=== PATIENT | female | born 1995 | race Two or more races ===

== ENCOUNTER 2020-05-22 13:50 | Emergency (ER) | payer OTHER ==
[~2020-05-22] VITALS: Ht 170.2 cm; Wt 59.0 kg
[2020-05-22] MEDS ORDERED: ONDANSETRON ODT4 MG SL (22:13)
[2020-05-22] MEDS ORDERED: PEPCID AC20 MG PO (22:13)
[2020-05-23] MEDS ORDERED: [UNRECOGNIZED DRUG - OTHER] (23:44)
== END 2020-05-23 01:45 ==
LOC: ER 13:50
DX: K52.89 Other specified noninfective gastroenteritis and colitis (principal); Z20.828 Contact with and (suspected) exposure to other viral communicable diseases

== ENCOUNTER 2020-05-25 21:44 | Emergency (ER) | payer OTHER ==
[~2020-05-25] VITALS: Ht 170.2 cm; Wt 59.0 kg
[~2020-05-25 21:44] MED LIST: ONDANSETRON ODT4 MG SL; PEPCID AC20 MG PO; [UNRECOGNIZED DRUG - OTHER]
[2020-05-25] MEDS ORDERED: ADERAL PO (22:00)
== END 2020-05-25 23:17 | disposition home or self-care (01) ==
LOC: ER 21:44
DX: R51.9 Headache, unspecified (principal)

== ENCOUNTER 2022-09-11 17:17 | Inpatient (IN) | payer OTHER ==
[~2022-09-11] VITALS: Ht 170.2 cm; Wt 59.0 kg
[~2022-09-11 17:17] MED LIST changes: +ADERAL PO
--- NOTE | 2022-09-11 18:34 | NUR ---
PACIENTE ALERTA Y ORIENTADA X3, EN COMPANIA DE FAMILIAR QUIEN REFIERE QUE LLEVA VARIOS DING CON DOLOR ABDOMINAL,VOMITOS Y DIARREAS. HOY GRIFFIN TENIDOS VOMITOS X10 Y DIARREAS X2. EN ADICION FAMILIAR REFIERE QUE SUFRIO DESMAYO HOY EN LA TARDE. SE MONITOREAN VS Y SE UBICA
--- NOTE | 2022-09-11 19:37 | NUR ---
SE RECIBE PTE EN SILLA DE RAJIV EN COMPANIA DE FAMILIAR. FAMILIAR REFIERE PTE CON VOMITOS Y DIARREAS MAS DE 3 DING DE EVOLUCION. SE OBSERVA PALIDA DEBIL. SE ORIENTA SOBRE TRATAMIENTO Y SE ADMINISTRA.
--- NOTE | 2022-09-11 22:36 | NUR ---
SE LLAMA A MS FERMIN PERSONAL DE TERAPIA RESPIRATORIA SE LE INDICA SI PUEDE VOLVER A INTENTAR ROSEMARIE GASES ARTERIALES PENDIENTES Y LA MISMA VERBALIZA "QUE YA LE MAGALIE BLAKE PINCHAZOS Y QUE GUERRERO COMPENERO TAMBIEN Y QUE NO PUDIERON COLECTAR LA MUESTRA, QUE ESPERARA AL PROXIMO TURNO DEL 11-7 PARA QUE SE LOS REALICEN".
[2022-09-12] MEDS ORDERED: AMPHETAMINE SAL20 MG (08:52)
[2022-09-12] MEDS ORDERED: CLONAZEPAM1 MG (08:52)
[2022-09-12] MEDS ORDERED: AMPHETAMINE SAL10 MG (08:52)
[2022-09-28] MEDS ORDERED: KAOPECTATE240 MG PO (16:48)
[2022-09-28] MEDS ORDERED: PROZAC20 MG PO (16:48)
[2022-09-28] MEDS ORDERED: PANTOPRAZOLE SO40 MG PO (16:48)
[2022-09-28] MEDS ORDERED: LORAZEPAM0.5 MG PO (16:48)
[2022-09-28] MEDS ORDERED: INTEGRA PLUS C1 EACH PO (16:48)
[2022-09-28] MEDS ORDERED: Neurin-Sl Tablet Sl SL (16:48)
== END 2022-09-28 17:45 | disposition home or self-care (01) | DRG 870 ==
LOC: ER 17:17 → ICU 23:58 → MEDI 09-26 18:35
PROVIDERS: ADMIT Internal Medicine; ATTEND Internal Medicine
PROC: 5A1955Z Respiratory Ventilation, Greater than 96 Consecutive Hours (ICD-10-PCS; principal; 2022-09-11)
PROC: 0BH17EZ Insertion of Endotracheal Airway into Trachea, Via Natural or Artificial Opening (ICD-10-PCS; 2022-09-11)
PROC: 02HV33Z Insertion of Infusion Device into Superior Vena Cava, Percutaneous Approach (ICD-10-PCS; 2022-09-12)
PROC: 0F9430Z Drainage of Gallbladder with Drainage Device, Percutaneous Approach (ICD-10-PCS; 2022-09-14)
PROC: 30243R1 Transfusion of Nonautologous Platelets into Central Vein, Percutaneous Approach (ICD-10-PCS; 2022-09-14)
PROC: 30243N1 Transfusion of Nonautologous Red Blood Cells into Central Vein, Percutaneous Approach (ICD-10-PCS; 2022-09-14)
PROC: 0W9B3ZZ Drainage of Left Pleural Cavity, Percutaneous Approach (ICD-10-PCS; 2022-09-20)
PROC: 4A12X4Z Monitoring of Cardiac Electrical Activity, External Approach (ICD-10-PCS; 2022-09-26)
DX: A41.89 Other specified sepsis (principal); D65 Disseminated intravascular coagulation [defibrination syndrome]; R65.21 Severe sepsis with septic shock; I21.A1 Myocardial infarction type 2; J96.00 Acute respiratory failure, unspecified whether with hypoxia or hypercapnia; J69.0 Pneumonitis due to inhalation of food and vomit; K81.0 Acute cholecystitis; K51.019 Ulcerative (chronic) pancolitis with unspecified complications; K83.09 Other cholangitis; N17.9 Acute kidney failure, unspecified; F50.2 Bulimia nervosa; J91.8 Pleural effusion in other conditions classified elsewhere; F05 Delirium due to known physiological condition; G93.49 Other encephalopathy; D50.8 Other iron deficiency anemias; R53.81 Other malaise; R13.19 Other dysphagia; G40.901 Epilepsy, unspecified, not intractable, with status epilepticus; E86.0 Dehydration; E87.5 Hyperkalemia; I95.89 Other hypotension; E03.9 Hypothyroidism, unspecified; E07.81 Sick-euthyroid syndrome; F90.9 Attention-deficit hyperactivity disorder, unspecified type; F41.8 Other specified anxiety disorders; Q76.0 Spina bifida occulta; Z68.20 Body mass index [BMI] 20.0-20.9, adult
CPT/HCPCS: 70553

== ENCOUNTER 2022-11-10 05:00 | Day surgery (SDC) | payer OTHER ==
[~2022-11-10 05:00] MED LIST changes: +ADDERALL 30 MG30 MG PO; +AMPHETAMINE SAL10 MG; +AMPHETAMINE SAL20 MG; +CLONAZEPAM1 MG; +INTEGRA PLUS C1 EACH PO; +KAOPECTATE240 MG PO; +LORAZEPAM0.5 MG PO; +Neurin-Sl Tablet Sl SL; +PANTOPRAZOLE SO40 MG PO; +PROZAC20 MG PO
== END 2022-11-10 10:55 | disposition home or self-care (01) ==
LOC: CIR.AMB 05:00
PROVIDERS: ATTEND Surgery
DX: K81.1 Chronic cholecystitis (principal); Z20.822 Contact with and (suspected) exposure to COVID-19

== ENCOUNTER → 2024-07-02 | Emergency (ER) | payer OTHER ==
[~2024-07-02] VITALS: Ht 170.2 cm; Wt 59.0 kg
[2024-07-02 09:10] VITALS: BP 124/88; O2SAT 100
== END | disposition left against medical advice (07) ==
LOC: ER 08:38
DX: R07.9 Chest pain, unspecified (principal); F41.9 Anxiety disorder, unspecified; Z91.018 Allergy to other foods

== ENCOUNTER 2024-09-27 16:19 | Emergency (ER) | payer OTHER ==
[~2024-09-27] VITALS: Ht 170.2 cm; Wt 54.4 kg
== END 2024-09-27 19:02 | disposition home or self-care (01) ==
LOC: ER 16:19
DX: K64.8 Other hemorrhoids (principal); Z91.018 Allergy to other foods; F41.8 Other specified anxiety disorders; F90.8 Attention-deficit hyperactivity disorder, other type

== ENCOUNTER 2024-09-29 06:56 | Emergency (ER) | payer OTHER ==
[~2024-09-29] VITALS: Ht 170.2 cm; Wt 54.4 kg
[2024-09-29] MEDS ORDERED: 0.9 % SODIUM CHLORIDE 1,000 ML IV ONE (09:00)
[2024-09-29 10:10] LABS: HEMATOCRIT 38.1 % (36.0-45.00); HEMOGLOBIN 12.8 g/dL (12.0-15.00); MEAN CELL VOLUME 85.3 fL (80.00-100.00); MEAN CORPUSCULAR HEMOGLOBIN 28.7 pg (27.00-32.0); MEAN CORPUSCULAR HGB CONC 33.7 g/dl (32.0-36.0); PLATELET COUNT 359 K/uL (150-450); RED BLOOD COUNT 4.47 M/uL (4.00-6.00); RED CELL DISTRIBUTION WIDTH 14.9 % (11.5-14.5)
[2024-09-29 11:26] LABS: URINE APPEARANCE Clear; URINE BILIRRUBIN Negative (NEGATIVE); URINE BLOOD Small; URINE COLOR Yellow; URINE GLUCOSE Negative (NEGATIVE); URINE KETONE Negative (NEGATIVE); URINE LEUKOCYTE Negative; URINE NITRATE Negative; URINE PROTEIN Negative (NEGATIVE); URINE UROBILINOGEN 0.2 E.U./dl
[2024-09-29 11:30] LABS: URINE BACTERIA 210.4 uL (0.0-1933); URINE EPITHELIAL CELLS 25.4 uL (0.0-38.8); URINE RBC 105.7 uL (0.0-20.8); URINE WBC 11.3 uL (0.0-23.2)
[2024-09-29 11:38] LABS: ALBUMIN 4.5 gm/dL (3.4-5.0); ALKALINE PHOSPHATASE 95 U/L (50-136); ALT/SGPT 17 U/L (12-78); ANION GAP 11 (10.0-20.0); AST/SGOT 15 U/L (15-37); BILIRUBIN TOTAL 0.31 mg/dL (0.3-1.2); BLOOD UREA NITROGEN 11 mg/dL (7-18); BUN CREA RATIO 9 (7.0-25.0); CALCIUM 9.1 mg/dL (8.5-10.1); CARBON DIOXIDE 27 mEq/L (21-32); CHLORIDE 106 mmol/L (98-107); CREATININE SERUM 1.17 mg/dL (0.55-1.02); GFR 54.31; GLOBULINA 3.8 G/DL (2.4-3.5); GLUCOSE FASTING 88 mg/dL (65-100); OSMOLALITY SERUM 278 MOSM/KG (275-295); POTASSIUM 3.64 mEq/L (3.5-5.1); SODIUM 140 mmol/L (136-145); TOTAL PROTEIN 8.3 gm/dL (6.4-8.2)
[2024-09-29 11:51] LABS: HCG QUANTITATIVE < 1 mUI/mL (1-3)
[2024-09-29 12:11] LABS: URINE CAST 0.14 uL (0.0-1.40)
[2024-09-29] MEDS ORDERED: BUTALB/ACETAMINOPHEN/CAFFEINE 1 TAB TABLET PO ONE ×2 (15:38→15:45)
[2024-09-29] MEDS ORDERED: BUTALBIT-ACETA1 EACH PO (15:38)
[2024-09-29 16:14] LABS: COCAINE NEGATIVE (NEGATIVE); METHADONE NEGATIVE (NEGATIVE); OPIATES NEGATIVE (NEGATIVE); THC ( Cannabinoids) NEGATIVE (NEGATIVE)
== END 2024-09-29 16:26 | disposition home or self-care (01) ==
LOC: ER 06:56
PROVIDERS: General Practice
DX: R51.9 Headache, unspecified (principal); B83.9 Helminthiasis, unspecified; Z91.018 Allergy to other foods